=== PATIENT | male | born 2000 | race Caucasian/White ===

== ENCOUNTER 2023-11-19 17:55 | Inpatient (IN) | payer BC ==
[2023-11-19 18:44] LABS: BASE EXCESS VENOUS -1.7 (-4.0-2.0); BICARBONATE,VENOUS 23.9 meq/L (22-26); O2 SATURATION VENOUS 78.2; PCO2 VENOUS 46.1 mmHg (41-51); PH,VENOUS 7.34 (7.30-7.40)
[2023-11-19] MEDS ORDERED: Sodium Chloride 0.9% 1,000 ML IV ONE (18:57)
[2023-11-19] MEDS ORDERED: SODIUM CHLORIDE 0.9% IV ONE (19:00)
[2023-11-19] MEDS ORDERED: FOMEPIZOLE IV ONE (19:00)
[2023-11-19 19:14] LABS: A/G RATIO 1.1 (1-2); ALBUMIN 4.1 g/dl (3.4-5.0); BILIRUBIN TOTAL 0.5 mg/dL (0.2-1.0); BUN/CREATININE RATIO 13.6 (14-18); CALCIUM 9.5 mg/dL (8.5-10.1); CREATININE 1.4 mg/dL (0.7-1.3); EST CRCL DRUG DOSING (CG) 94.33 mL/min
[2023-11-19 19:21] LABS: BASOPHILS ABSOLUTE AUTO 0.1 K/mm3 (0.0-0.2); BASOPHILS PERCENT AUTO 1.4 % (0.0-1.0); EOSINOPHILS ABSOLUTE AUTO 0.1 K/mm3 (0.0-0.4); EOSINOPHILS PERCENT AUTO 1.1 % (0.0-6.0); HEMATOCRIT 44.8 % (42.0-52.0); IMMATURE GRAN ABSOLUTE AUTO 0.03 K/mm3 (0.00-0.05); IMMATURE GRAN PERCENT AUTO 0.4 % (0.0-0.4); LYMPHOCYTES ABSOLUTE AUTO 1.2 K/mm3 (1.0-4.8); LYMPHOCYTES PERCENT AUTO 14.9 % (24.0-44.0); MEAN CORPUSCULAR HEMOGLOBIN 29.6 pg (28.0-32.0); MEAN CORPUSCULAR HGB CONC 33.5 g/dl (32.0-36.0); MEAN CORPUSCULAR VOLUME 88.4 fl (83.0-99.0); MEAN PLATELET VOLUME 9.1 fl (9.4-12.4); MONOCYTES ABSOLUTE AUTO 0.5 K/mm3 (0.0-0.8); MONOCYTES PERCENT AUTO 6.5 % (0.0-8.0); NEUTROPHILS ABSOLUTE AUTO 6.2 K/mm3 (1.8-7.7); NEUTROPHILS PERCENT AUTO 75.7 % (41.0-71.0); PLATELET COUNT,PLT 273 K/mm3 (150-400); RED BLOOD CELL COUNT 5.07 M/mm3 (4.52-5.90); WHITE BLOOD CELL COUNT,WBC 8.14 K/mm3 (3.9-11.3)
[2023-11-19] MEDS: Thiamine 200 MG/2 ML MDV IVPUSH SCH (19:48)
[2023-11-19] MEDS: Vitamin B6-pyridOXINE 50 MG Tab PO SCH (19:49)
[2023-11-19] MEDS ORDERED: Ondansetron 4 MG Tab.DIS PO PRN (19:53)
[2023-11-19] MEDS ORDERED: Ondansetron 4 MG/2 ML SDV IV PRN (19:53)
[2023-11-19 22:25] LABS: APPEARANCE,URINE CLEAR (Clear); BILIRUBIN,URINE NEGATIVE (Negative); COLOR,URINE YELLOW (Yellow); GLUCOSE,URINE NEGATIVE (Negative); KETONES,URINE NEGATIVE (Negative); LEUKOCYTE ESTERASE,URINE NEGATIVE (Negative); NITRITE,URINE NEGATIVE (Negative); OCCULT BLOOD,URINE NEGATIVE (Negative); PH,URINE 8.5 (5.0-8.0); PROTEIN,URINE NEGATIVE (Negative); UROBILINOGEN,URINE 0.2 (0.2-1.0)
[2023-11-19 22:30] LABS: BARBITURATE SCREEN,URINE NEGATIVE (CUTOFF=200); BENZODIAZEPINES SCREEN,URINE NEGATIVE (CUTOFF=150); BUPRENORPHINE SCREEN,URINE NEGATIVE (CUTOFF=10); METHADONE SCREEN, URINE NEGATIVE (CUT0FF=200); METHAMPHETAMINES SCREEN, URINE NEGATIVE (CUTOFF=500); OXYCODONE SCREEN,URINE NEGATIVE (CUT0FF=100); THC SCREEN,URINE 20 NG/ML NEGATIVE (CUTOFF=50)
[2023-11-19 22:41] LABS: AMPHETAMINES SCREEN, URINE NEGATIVE (CUTOFF=500)
[2023-11-19 22:43] LABS: BACTERIA,URINE FEW /hpf (FEW); MUCUS,URINE FEW /hpf (FEW); RBC,URINE 0-5 /hpf (0-5); SQUAMOUS EPITHELIAL CELLS,UR 0-5 /hpf (0-5); WBC,URINE 0-5 /hpf (0-5)
[2023-11-20 00:16] LABS: ANION GAP 16.8 (5-15); BUN/CREATININE RATIO 14.6 (14-18); CREATININE 1.3 mg/dL (0.7-1.3); EST CRCL DRUG DOSING (CG) 101.58 mL/min; POTASSIUM,K 3.8 mEq/L (3.5-5.1)
[2023-11-20 05:29] LABS: ANION GAP 12.1 (5-15); BUN/CREATININE RATIO 13.8 (14-18); CALCIUM 8.9 mg/dL (8.5-10.1); CREATININE 1.3 mg/dL (0.7-1.3); EST CRCL DRUG DOSING (CG) 101.58 mL/min; POTASSIUM,K 4.1 mEq/L (3.5-5.1)
[2023-11-20 06:16] LABS: BASOPHILS ABSOLUTE AUTO 0.1 K/mm3 (0.0-0.2); EOSINOPHILS ABSOLUTE AUTO 0.1 K/mm3 (0.0-0.4); EOSINOPHILS PERCENT AUTO 0.9 % (0.0-6.0); HEMOGLOBIN 14.2 gm/dl (14.0-18.0); IMMATURE GRAN ABSOLUTE AUTO 0.03 K/mm3 (0.00-0.05); IMMATURE GRAN PERCENT AUTO 0.3 % (0.0-0.4); LYMPHOCYTES ABSOLUTE AUTO 2.8 K/mm3 (1.0-4.8); LYMPHOCYTES PERCENT AUTO 26.7 % (24.0-44.0); MEAN CORPUSCULAR HEMOGLOBIN 29.6 pg (28.0-32.0); MEAN CORPUSCULAR VOLUME 89.6 fl (83.0-99.0); MONOCYTES PERCENT AUTO 9.8 % (0.0-8.0); NEUTROPHILS ABSOLUTE AUTO 6.3 K/mm3 (1.8-7.7); NEUTROPHILS PERCENT AUTO 61.3 % (41.0-71.0); PLATELET COUNT,PLT 281 K/mm3 (150-400); WHITE BLOOD CELL COUNT,WBC 10.29 K/mm3 (3.9-11.3)
[2023-11-20] MEDS ORDERED: FOMEPIZOLE IV SCH (08:00)
[2023-11-20] MEDS ORDERED: SODIUM CHLORIDE 0.9% IV SCH (08:00)
[2023-11-20 09:09] LABS: ANION GAP 14.8 (5-15); BUN/CREATININE RATIO 12.3 (14-18); CALCIUM 9.1 mg/dL (8.5-10.1); CREATININE 1.3 mg/dL (0.7-1.3); EST CRCL DRUG DOSING (CG) 101.58 mL/min; POTASSIUM,K 3.8 mEq/L (3.5-5.1)
[2023-11-20] MEDS: Thiamine 200 MG/2 ML MDV IVPUSH SCH (09:16)
[2023-11-20] MEDS: Vitamin B6-pyridOXINE 50 MG Tab PO SCH (09:16)
[2023-11-20 12:26] LABS: ANION GAP 15.8 (5-15); BUN/CREATININE RATIO 11.5 (14-18); CALCIUM 9.3 mg/dL (8.5-10.1); CREATININE 1.3 mg/dL (0.7-1.3); EST CRCL DRUG DOSING (CG) 101.58 mL/min; POTASSIUM,K 3.8 mEq/L (3.5-5.1)
[2023-11-20 16:34] LABS: BUN/CREATININE RATIO 12.3 (14-18); CALCIUM 9.3 mg/dL (8.5-10.1); CREATININE 1.3 mg/dL (0.7-1.3); EST CRCL DRUG DOSING (CG) 101.58 mL/min
[2023-11-20 20:18] LABS: ANION GAP 14.7 (5-15); BUN/CREATININE RATIO 11.3 (14-18); CALCIUM 9.4 mg/dL (8.5-10.1); CREATININE 1.6 mg/dL (0.7-1.3); EST CRCL DRUG DOSING (CG) 82.54 mL/min; POTASSIUM,K 4.7 mEq/L (3.5-5.1)
[2023-11-21 00:49] LABS: ANION GAP 14.9 (5-15); BUN/CREATININE RATIO 11.3 (14-18); CALCIUM 8.7 mg/dL (8.5-10.1); CREATININE 1.5 mg/dL (0.7-1.3); EST CRCL DRUG DOSING (CG) 88.04 mL/min
[2023-11-21 00:52] LABS: POTASSIUM,K 3.9 mEq/L (3.5-5.1)
[2023-11-21 04:20] LABS: ANION GAP 13.2 (5-15); BUN/CREATININE RATIO 11.4 (14-18); CREATININE 1.4 mg/dL (0.7-1.3); EST CRCL DRUG DOSING (CG) 94.33 mL/min; POTASSIUM,K 4.2 mEq/L (3.5-5.1)
[2023-11-21] MEDS: Vitamin B6-pyridOXINE 50 MG Tab PO SCH (08:54)
[2023-11-21] MEDS: Thiamine 200 MG/2 ML MDV IVPUSH SCH (08:54)
[2023-11-21 09:35] LABS: ANION GAP 14.4 (5-15); BUN/CREATININE RATIO 13.3 (14-18); CALCIUM 9.2 mg/dL (8.5-10.1); CREATININE 1.2 mg/dL (0.7-1.3); EST CRCL DRUG DOSING (CG) 110.05 mL/min; POTASSIUM,K 4.4 mEq/L (3.5-5.1)
[2023-11-22] MEDS ORDERED: FOMEPIZOLE IV SCH (08:00)
[2023-11-22] MEDS ORDERED: SODIUM CHLORIDE 0.9% IV SCH (08:00)
== END 2023-11-21 12:10 | disposition home or self-care (01) | DRG 816 ==
LOC: JD.ED 17:55 → JD.MS 19:53
PROVIDERS: ADMIT Hospitalist; ATTEND Hospitalist
DX: T52.8X1A Toxic effect of other organic solvents, accidental (unintentional), initial encounter (principal); Z98.890 Other specified postprocedural states
CPT/HCPCS: 36415; 71046; 71046-26; 80048; 80053; 80306; 81001; 82693; 82803; 83930; 85025; 96365; 96375; 99222; 99238; 99284; 99284-25; A9270-GY; J1451; J3411; J3490; J7030